=== PATIENT | female | born 2000 | race Caucasian/White ===

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

== ENCOUNTER 2022-03-27 20:46 | Emergency (ER) | payer BC, OTHER ==
[2022-03-27 21:14] VITALS: BP 124/86; PULSE 68; TEMP 98.8; BMI 23.0
== END 2022-03-27 22:30 | disposition left against medical advice (07) ==
LOC: JER 20:46
DX: R10.9 Unspecified abdominal pain (principal)
CPT/HCPCS: 99281-25